=== PATIENT | male | born 1985 | race Caucasian/White ===

== ENCOUNTER 2017-08-08 03:39 | Inpatient (IN) | payer SELFPAY ==
[~2017-08-08] VITALS: Ht 172.7 cm; Wt 87.2 kg
[2017-08-08] VITALS (8 sets, daily range): BP systolic 106–154; BP diastolic 70–89; PULSE 76–101; RESP 16–18; TEMP 97.1–99.5; O2SAT 94–100
[2017-08-08] MEDS ORDERED: MORPHINE SULFATE 4 MG/ML INJ ONE (03:42)
[2017-08-08] MEDS ORDERED: ONDANSETRON HCL 4 MG/2 ML VIAL ONE (03:42)
[2017-08-08 04:02] LABS: AUTOMATED NEUTROPHIL # 3.5 TH/MM3 (1.8-7.7); BASOPHIL # 0.1 TH/MM3 (0-0.2); BASOPHIL % 0.9 % (0.0-2.0); EOSINOPHIL # 0.3 TH/MM3 (0-0.4); EOSINOPHIL % 3.8 % (0.0-4.0); HEMATOCRIT 43.8 % (39.0-51.0); HEMOGLOBIN 14.9 GM/DL (13.0-17.0); LYMPH % 43.3 % (9.0-44.0); LYMPHOCYTE # 3.5 TH/MM3 (1.0-4.8); MEAN CORPUSCULAR HEMOGLOBIN 30.3 PG (27.0-34.0); MEAN PLATELET VOLUME 7.3 FL (7.0-11.0); MONO % 9.1 % (0.0-8.0); MONOCYTE # 0.7 TH/MM3 (0-0.9); NEUT % 42.9 % (16.0-70.0); PLATELET COUNT 327 TH/MM3 (150-450); RED BLOOD COUNT 4.92 MIL/MM3 (4.50-5.90); RED CELL DISTRIBUTION WIDTH 13.1 % (11.6-17.2); WHITE BLOOD COUNT 8.1 TH/MM3 (4.0-11.0)
[2017-08-08] MEDS ORDERED: IOHEXOL 350 MG/ML 10 ML VIAL (for RAD DIAG) IVCONTRAST ONE (04:04)
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
[2017-08-08] MEDS ORDERED: LACTATED RINGER'S 1000 ML INJ 1,000 ML IV SCH (04:24)
[2017-08-08] MEDS ORDERED: MORPHINE SULFATE 2 MG/ML INJ IV PUSH PRN (04:30)
[2017-08-08] MEDS ORDERED: ONDANSETRON HCL 4 MG/2 ML VIAL IV PUSH PRN (04:30)
[2017-08-08] MEDS ORDERED: MISCELLANEOUS NURSING INFORMATION XX SCH (04:30)
[2017-08-08] MEDS ORDERED: CHLORHEXIDINE GLUCONATE 2 % 1 PACK (2 CLOTHS) TOP PRN (04:30)
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
[2017-08-08] MEDS: ACETAMINOPHEN 1000 MG/100 ML 100 ML IV SCH ×2 (05:11→10:30)
[2017-08-08] MEDS: MORPHINE SULFATE 2 MG/ML INJ IV PUSH PRN ×5 (05:13→18:14)
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
[2017-08-08] MEDS: DOCUSATE SODIUM 100 MG CAP PO SCH ×2 (08:37→21:00)
[2017-08-08] MEDS: MAGNESIUM HYDROXIDE SUSP 30 ML CUP PO SCH ×2 (08:37→21:00)
[2017-08-08] MEDS ORDERED: DOCU1CAP39 PO (09:17)
[2017-08-08] MEDS ORDERED: MAGN30S PO (09:17)
[2017-08-08] MEDS ORDERED: oxyCODONE/ACETAMINOPHEN 5 MG/325 MG TAB PO PRN (12:30)
[2017-08-08] MEDS: GABAPENTIN 300 MG CAP PO SCH ×2 (14:55→18:14)
[2017-08-08] MEDS: oxyCODONE/ACETAMINOPHEN 10 MG/325 MG TAB PO PRN (21:32)
[2017-08-09] VITALS: BP 125/73; PULSE 71; RESP 16; TEMP 98.4; O2SAT 99
[2017-08-09] MEDS: oxyCODONE/ACETAMINOPHEN 10 MG/325 MG TAB PO PRN ×4 (03:03→19:57)
[2017-08-09] MEDS ORDERED: CHLORHEXIDINE GLUCONATE 2 % 1 PACK (2 CLOTHS) TOP SCH (04:00)
[2017-08-09 05:21] LABS: AUTOMATED NEUTROPHIL # 4.5 TH/MM3 (1.8-7.7); BASOPHIL % 0.4 % (0.0-2.0); EOSINOPHIL # 0.3 TH/MM3 (0-0.4); EOSINOPHIL % 3.8 % (0.0-4.0); HEMATOCRIT 40.7 % (39.0-51.0); HEMOGLOBIN 13.6 GM/DL (13.0-17.0); LYMPH % 27.8 % (9.0-44.0); LYMPHOCYTE # 2.1 TH/MM3 (1.0-4.8); MEAN CELL VOLUME 89.2 FL (80.0-100.0); MEAN CORPUSCULAR HEMOGLOBIN 29.8 PG (27.0-34.0); MEAN CORPUSCULAR HGB CONC 33.4 % (32.0-36.0); MEAN PLATELET VOLUME 7.4 FL (7.0-11.0); MONO % 9.4 % (0.0-8.0); MONOCYTE # 0.7 TH/MM3 (0-0.9); NEUT % 58.6 % (16.0-70.0); PLATELET COUNT 250 TH/MM3 (150-450); RED BLOOD COUNT 4.56 MIL/MM3 (4.50-5.90); RED CELL DISTRIBUTION WIDTH 13.2 % (11.6-17.2); WHITE BLOOD COUNT 7.7 TH/MM3 (4.0-11.0)
[2017-08-09 05:23] LABS: BICARBONATE 28.1 MEQ/L (21.0-32.0); CALCIUM 8.4 MG/DL (8.5-10.1); CREATININE 0.85 MG/DL (0.60-1.30)
[2017-08-09 08:00] VITALS: BP 137/84; PULSE 84; RESP 18; TEMP 95.4; O2SAT 100
[2017-08-09] MEDS: GABAPENTIN 300 MG CAP PO SCH ×3 (08:05→17:19)
[2017-08-09] MEDS: DOCUSATE SODIUM 100 MG CAP PO SCH ×2 (08:05→20:12)
[2017-08-09] MEDS: MAGNESIUM HYDROXIDE SUSP 30 ML CUP PO SCH ×2 (08:06→20:12)
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
[2017-08-09 12:00] VITALS: BP 133/79; PULSE 88; RESP 18; TEMP 97.5; O2SAT 100
[2017-08-09 16:00] VITALS: BP 133/81; PULSE 86; RESP 18; TEMP 97.4; O2SAT 100
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
[2017-08-09] MEDS ORDERED: KETOROLAC TROMETHAMINE 30 MG/ML (IVP) VIAL IV PUSH ONE (16:15)
[2017-08-09 20:05] VITALS: BP 146/87; PULSE 88; RESP 18; TEMP 98.7; O2SAT 99
[2017-08-09] MEDS: KETOROLAC TROMETHAMINE 30 MG/ML (IVP) VIAL IV PUSH SCH (23:27)
[2017-08-10 00:06] VITALS: BP 121/69; PULSE 76; RESP 18; TEMP 97.9; O2SAT 99
[2017-08-10] MEDS: oxyCODONE/ACETAMINOPHEN 10 MG/325 MG TAB PO PRN ×2 (04:56→11:13)
[2017-08-10] MEDS: KETOROLAC TROMETHAMINE 30 MG/ML (IVP) VIAL IV PUSH SCH ×2 (04:56→11:14)
[2017-08-10] MEDS ORDERED: IBUP200C PO (06:48)
[2017-08-10 08:00] VITALS: BP 132/77; PULSE 72; RESP 18; TEMP 97.6; O2SAT 98
[2017-08-10] MEDS: DOCUSATE SODIUM 100 MG CAP PO SCH (08:16)
[2017-08-10] MEDS: GABAPENTIN 300 MG CAP PO SCH (08:16)
[2017-08-10] MEDS: MAGNESIUM HYDROXIDE SUSP 30 ML CUP PO SCH (08:17)
[2017-08-10] MEDS ORDERED: PERC5TAB12 PO (10:58)
[2017-08-10] MEDS ORDERED: BACT800T5 PO (10:58)
[2017-08-10 12:00] VITALS: BP 127/69; PULSE 72; RESP 18; TEMP 96.7; O2SAT 99
[2017-08-10 12:37] VITALS: RESP 17
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
== END 2017-08-10 13:51 | disposition home or self-care (01) | DRG 914 ==
LOC: NEPI 03:39 → NEDA 04:18 → EDBD 04:18 → N06B 05:22
PROVIDERS: ADMIT Surgery Trauma Surgery; ATTEND Surgery Trauma Surgery
DX: S71.142A Puncture wound with foreign body, left thigh, initial encounter (principal); S71.131A Puncture wound without foreign body, right thigh, initial encounter; S31.33XA Puncture wound without foreign body of scrotum and testes, initial encounter; Y24.9XXA Unspecified firearm discharge, undetermined intent, initial encounter; Y92.039 Unspecified place in apartment as the place of occurrence of the external cause
CPT/HCPCS: 72170; 72193; 73551; 76870; 80048; 85025; 85610; 85730; 86850; 86900; 86901; 90471; 93975; 94150; 96374; 96375; 99291; G0390; J0131; J0690; J1885; J2270; J2405; J7120; Q9967